=== PATIENT | female | born 1990 | race Two or more races ===

== ENCOUNTER 2024-10-10 01:23 | Emergency (ER) | payer OTHER, MEDICAID ==
[~2024-10-10] VITALS: Ht 165.1 cm; Wt 63.6 kg
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
[2024-10-10] MEDS ORDERED: FAMO20TA10 PO (05:20)
[2024-10-10] MEDS ORDERED: TIZA-142 PO (05:20)
[2024-10-10] MEDS ORDERED: KETO10TA PO (05:20)
[2024-10-10] MEDS: OXYCODONE W/ ACETAMINOPHEN 5/325MG TABLET PO ONE (05:35)
[2024-10-10 05:45] VITALS: TEMP 98.3; O2SAT 96
[2024-10-10] MEDS ORDERED: MORPHINE SULFATE INJ 2 MG/ml SYRG IV ONE ×2 (05:45→06:00)
[2024-10-10 06:02] VITALS: BP 124/65; PULSE 87; RESP 14
[2024-10-10] MEDS: MORPHINE SULFATE 4 MG/ML SYR/VIAL IV ONE (06:02)
== END 2024-10-10 06:11 | disposition home or self-care (01) ==
LOC: EDBD 01:23 → ER 01:23
DX: S62.334A Displaced fracture of neck of fourth metacarpal bone, right hand, initial encounter for closed fracture (principal); S13.4XXA Sprain of ligaments of cervical spine, initial encounter; S60.212A Contusion of left wrist, initial encounter; S00.83XA Contusion of other part of head, initial encounter; Z88.8 Allergy status to other drugs, medicaments and biological substances; Z79.899 Other long term (current) drug therapy; V89.2XXA Person injured in unspecified motor-vehicle accident, traffic, initial encounter; Y93.89 Activity, other specified; Y92.415 Exit ramp or entrance ramp of street or highway as the place of occurrence of the external cause; Y99.8 Other external cause status
CPT/HCPCS: 29125; 70450; 72125; 73110; 96374; 99285; J2270